=== PATIENT | female | born 1945 | race Caucasian/White ===

== ENCOUNTER 2022-08-14 10:20 | Outpatient (CLI) | payer MEDICARE, OTHER | END 2022-08-14 10:21 | disposition home or self-care (01) | LOC: CSHLAB 10:20 | PROVIDERS: ATTEND Internal Medicine | DX: Z20.822 Contact with and (suspected) exposure to COVID-19 (principal) | CPT/HCPCS: 87811 ==

== ENCOUNTER 2024-09-19 10:53 | Outpatient (CLI) | payer MEDICARE, OTHER | END 2024-09-19 10:54 | disposition home or self-care (01) | LOC: CSHMAMMO 10:53 | PROVIDERS: ATTEND Family Medicine | DX: N95.9 Unspecified menopausal and perimenopausal disorder (principal) | CPT/HCPCS: 77080 ==